=== PATIENT | male | born 1980 | race Caucasian/White ===

== ENCOUNTER 2019-06-21 10:21 | Day surgery (SDC) | payer BC ==
[~2019-06-21] VITALS: Ht 170.2 cm; Wt 90.7 kg
[2019-06-21] MEDS ORDERED: LR 1,000 ML IV SCH (14:07)
[2019-06-21] MEDS ORDERED: HYDROmorphone 1 MG INJ. 1 MG/ML AMPUL IVP PRN ×2 (14:15)
[2019-06-21] MEDS ORDERED: ONDANSETRON HCL 4 MG/2 ML VIAL IVP PRN (14:15)
[2019-06-21] MEDS ORDERED: KETOROLAC TROMETHAMINE 30 MG VIAL IVP PRN (14:15)
[2019-06-21] MEDS ORDERED: METOCLOPRAMIDE HCL 10 MG/2 ML VIAL IVP PRN (14:15)
[2019-06-21] MEDS ORDERED: ePHEDrine sulfate 50 MG/ML VIAL IVP PRN (14:15)
[2019-06-21] MEDS ORDERED: MIDAZOLAM HCL 5 MG/ML VIAL (VERSED) IV ONE (15:40)
[2019-06-21] MEDS ORDERED: EPINEPHrine 1 MG/ML AMP ONE (15:40)
[2019-06-21] MEDS ORDERED: WATER FOR IRRIGATION,STERILE 1,000 ML IRRIG.SOLN IR ONE (15:40)
[2019-06-21] MEDS ORDERED: LR 1,000 ML IV.SOLN IV ONE (15:40)
[2019-06-21] MEDS ORDERED: NS IRRIG SOLN 1000 ML IR ONE (15:40)
[2019-06-21] MEDS ORDERED: SEVOFLURANE 15 MIN GAS INH ONE (15:40)
[2019-06-21] MEDS ORDERED: NEOSTIGMINE METHYLSULFATE 1 MG/ML, 10 ML VIAL ONE (15:40)
[2019-06-21] MEDS ORDERED: ROCURONIUM BROMIDE 10 MG/ML (ZEMURON) ONE (15:40)
[2019-06-21] MEDS ORDERED: fentaNYL CITRATE/PF 100 MCG/2 ML AMP ONE (15:40)
[2019-06-21] MEDS ORDERED: PROPOFOL 200MG/ 20ML VIAL (DIPRIVAN) IV ONE (15:40)
[2019-06-21] MEDS ORDERED: DEXAMETHASONE SOD PHOSPHATE 4 MG/ML VIAL ONE (15:40)
[2019-06-21] MEDS ORDERED: LIDOCAINE/EPI 1% 1:100000 20 ML VIAL INJ ONE (15:40)
[2019-06-21] MEDS ORDERED: GLYCOPYRROLATE 0.2 MG/ML VIAL ONE (15:40)
[2019-06-21] MEDS ORDERED: KETOROLAC TROMETHAMINE 30 MG VIAL ONE (16:13)
[2019-06-21 17:42] VITALS: BP_SYST 123
== END 2019-06-21 17:20 | disposition home or self-care (01) ==
LOC: SDS 10:21 → SMU 10:23 → EDSEX 12:30 → SDS 17:20
PROVIDERS: ATTEND Otolaryngology
DX: J34.89 Other specified disorders of nose and nasal sinuses (principal); J32.8 Other chronic sinusitis; K21.9 Gastro-esophageal reflux disease without esophagitis; J32.4 Chronic pansinusitis; J34.2 Deviated nasal septum; J45.20 Mild intermittent asthma, uncomplicated; D37.09 Neoplasm of uncertain behavior of other specified sites of the oral cavity; E66.3 Overweight; Z68.31 Body mass index [BMI] 31.0-31.9, adult; Z87.891 Personal history of nicotine dependence; Z98.890 Other specified postprocedural states
CPT/HCPCS: 30140; 30520; 31255; 31256; 31296; 88305; 88311; C1726; J0171; J1100; J1885; J2250; J2704; J2710; J3010; J3490; J7120